=== PATIENT | female | born 1965 | race Two or more races ===

== ENCOUNTER → 2023-03-23 | Day surgery (SDC) | payer OTHER | END | disposition home or self-care (01) | LOC: FMAMMOTONE 09:51 | PROVIDERS: ATTEND Surgery | PROC: 0HBU3ZX Excision of Left Breast, Percutaneous Approach, Diagnostic (ICD-10-PCS; principal; 2023-03-23) | DX: D24.2 Benign neoplasm of left breast (principal); N64.89 Other specified disorders of breast; R92.8 Other abnormal and inconclusive findings on diagnostic imaging of breast | CPT/HCPCS: 19081; 76098-TC-FY; 87899; 88305-TC; A4648 ==

== ENCOUNTER 2023-04-14 03:40 | Day surgery (SDC) | payer OTHER ==
[2023-04-09 13:10] VITALS: BMI 38.2
[2023-04-14] MEDS ORDERED: ONDANSETRON 4 MG/2 ML VIAL ONE ×2 (13:01→16:49)
[2023-04-14] MEDS ORDERED: ceFAZolin SODIUM 1 GM VIAL ONE (13:01)
[2023-04-14] MEDS ORDERED: LIDOCAINE HCL/PF 2% SDV 5ML VIAL ONE (13:01)
[2023-04-14] MEDS ORDERED: SODIUM CHLORIDE 0.9% P/F 10 ML VIAL IJ ONE ×3 (13:01→15:22)
[2023-04-14] MEDS ORDERED: DEXAMETHASONE SOD PHOSPHATE 4 MG/1 ML VIAL ONE (13:01)
[2023-04-14] MEDS ORDERED: PROPOFOL 20 ML ONE (13:02)
[2023-04-14] MEDS ORDERED: MIDAZOLAM HCL 2 MG/2 ML SINGLE DOSE VIAL ONE (13:08)
[2023-04-14] MEDS ORDERED: FENTANYL CITRATE/PF 50 MCG/ML VIAL ONE ×3 (13:16→16:20)
[2023-04-14] MEDS ORDERED: LIDOCAINE HCL 1%, 10 MG/ML (20ML VIAL) ONE (13:48)
[2023-04-14] MEDS ORDERED: ISOSULFAN BLUE 50 MG/5 ML VIAL SQ ONE (13:48)
[2023-04-14] MEDS ORDERED: ALBUTEROL SO4 HFA INHALER IH ONE (14:46)
[2023-04-14] MEDS ORDERED: ceFAZolin SODIUM 1 GM VIAL IVPB ONE (14:55)
[2023-04-14] MEDS ORDERED: LIDOCAINE HCL 1%, 10 MG/ML (20ML VIAL) NR ONE (15:13)
[2023-04-14] MEDS ORDERED: HYDROmorphone HCl 2 MG/ML VIAL ONE (15:21)
[2023-04-14] MEDS ORDERED: oxyCODONE HCL 5 MG TABLET PO PRN (16:16)
[2023-04-14] MEDS ORDERED: LACTATED RINGERS SOLUTION 1,000 ML IV SCH (16:30)
[2023-04-14] MEDS ORDERED: ONDANSETRON 4 MG/2 ML VIAL IVPUSH PRN (16:54)
[2023-04-14 18:30] VITALS: RESP 18
[2023-04-14 19:04] VITALS: BP 131/77; PULSE 77; TEMP 97.1
== END 2023-04-14 19:05 | disposition home or self-care (01) ==
LOC: JASU-SURG 03:40
PROVIDERS: ATTEND Surgery
PROC: 0HBU0ZZ Excision of Left Breast, Open Approach (ICD-10-PCS; principal; 2023-04-14 13:00)
DX: C50.912 Malignant neoplasm of unspecified site of left female breast (principal); C77.3 Secondary and unspecified malignant neoplasm of axilla and upper limb lymph nodes
CPT/HCPCS: 78195-TC; 94760; A9541

== ENCOUNTER 2023-06-09 04:07 | Day surgery (SDC) | payer OTHER ==
[2023-06-03 15:04] VITALS: BMI 38.2
[~2023-06-09 04:07] MED LIST: LIDOCAINE HCL 1%, 10 MG/ML (50 mL VIAL) INF ONE
[2023-06-09 07:10] VITALS: RESP 18
[2023-06-09] MEDS ORDERED: LIDOCAINE HCL 1%, 10 MG/ML (20ML VIAL) ONE (07:25)
[2023-06-09] MEDS ORDERED: MIDAZOLAM HCL 2 MG/2 ML SINGLE DOSE VIAL ONE (09:12)
[2023-06-09] MEDS ORDERED: PROPOFOL 20 ML ONE (09:12)
[2023-06-09] MEDS ORDERED: ceFAZolin SODIUM 1 GM VIAL ONE (09:13)
[2023-06-09] MEDS ORDERED: LIDOCAINE HCL/PF 2% SDV 5ML VIAL ONE (09:13)
[2023-06-09] MEDS ORDERED: SODIUM CHLORIDE 0.9% P/F 10 ML VIAL IJ ONE (09:13)
[2023-06-09] MEDS ORDERED: ceFAZolin SODIUM 1 GM VIAL IVPB ONE (09:36)
[2023-06-09] MEDS ORDERED: LIDOCAINE HCL 1%, 10 MG/ML (50 mL VIAL) INF ONE ×2 (09:51)
[2023-06-09] MEDS ORDERED: PROMETHAZINE HCL 25 MG/1 ML VIAL IVPB PRN (10:23)
[2023-06-09] MEDS ORDERED: ONDANSETRON 4 MG/2 ML VIAL IVPUSH PRN (10:23)
[2023-06-09] MEDS ORDERED: LACTATED RINGERS SOLUTION 1,000 ML IV SCH (10:30)
[2023-06-09] MEDS ORDERED: ONDANSETRON 4 MG/2 ML VIAL ONE (10:37)
[2023-06-09] MEDS ORDERED: PROMETHAZINE HCL 25 MG/1 ML VIAL ONE (11:01)
[2023-06-09 13:38] VITALS: BP 135/69; PULSE 80; TEMP 97.8
== END 2023-06-09 13:47 | disposition home or self-care (01) ==
LOC: JASU-SURG 04:07
PROVIDERS: ATTEND Surgery
PROC: 0JH63WZ Insertion of Totally Implantable Vascular Access Device into Chest Subcutaneous Tissue and Fascia, Percutaneous Approach (ICD-10-PCS; principal; 2023-06-09 09:00)
DX: C50.919 Malignant neoplasm of unspecified site of unspecified female breast (principal)
CPT/HCPCS: 36561; C1788; 71045-TC-FY; 76000-TC-FY; 81025; 94760; C1751; J1644